=== PATIENT | female | born 1975 | race Caucasian/White ===

== ENCOUNTER 2025-08-23 14:17 | Outpatient (CLI) | payer OTHER ==
--- NOTE | 2025-08-23 15:23 | RADIOLOGY REPORT ---
EXAM: DI KNEE 3 VWS CLINICAL INDICATION: ARTHRITIS ,LEFT TECHNIQUE: DI KNEE 3 VWS Comparison: None FINDINGS/IMPRESSION: There is no evidence of acute fracture or dislocation. Moderate left knee tricompartmental joint space narrowing. The alignment is anatomical. There is no radiopaque foreign body.
--- NOTE | 2025-08-23 15:23 | RADIOLOGY REPORT ---
Bilateral HIP RADIOGRAPH. CLINICAL INDICATION: ARTHRITIS TECHNIQUE: 4 views of the bilateral hip were obtained. FINDINGS: There is no evidence of fracture, subluxation or dislocation. Moderate bilateral hip osteoarthritis. The bony mineralization is normal.No radiopaque foreign body is identified. IMPRESSION: 1. No evidence of acute bony injury.
--- NOTE | 2025-08-23 15:23 | RADIOLOGY REPORT ---
EXAM: DI ANKLE, COMPLETE(3VW MIN) CLINICAL INDICATION: ARTHRITIS,LEFT TECHNIQUE: DI ANKLE, COMPLETE(3VW MIN) Comparison: None FINDINGS/IMPRESSION: There is no evidence of acute fracture or dislocation. The visualized joint space is well maintained. The alignment is anatomical. There is no radiopaque foreign body.
== END 2025-08-23 23:59 | disposition home or self-care (01) ==
LOC: RAD 14:17
PROVIDERS: ATTEND Chiropractor
DX: M17.12 Unilateral primary osteoarthritis, left knee (principal); M16.0 Bilateral primary osteoarthritis of hip; M25.862 Other specified joint disorders, left knee
CPT/HCPCS: 73502; 73562; 73610

== ENCOUNTER 2025-10-03 13:30 | Outpatient (CLI) | payer OTHER ==
--- NOTE | 2025-10-03 14:54 | RADIOLOGY REPORT ---
EXAM: DI FOOT,LIMITED (AP/LAT) CLINICAL INDICATION: BILAT PLANTAR FASCIITIS TECHNIQUE: DI FOOT,LIMITED (AP/LAT) Comparison: DI ANKLE, COMPLETE(3VW MIN) on DOS: 08/23/25 FINDINGS/IMPRESSION: There is no evidence of acute fracture or dislocation. The visualized joint space is well maintained. The alignment is anatomical. There is no radiopaque foreign body.
== END 2025-10-03 23:59 | disposition home or self-care (01) ==
LOC: RAD 13:30
PROVIDERS: ATTEND Chiropractor
DX: M72.2 Plantar fascial fibromatosis (principal)
CPT/HCPCS: 73620